=== PATIENT | female | born 1955 | race Caucasian/White ===

== ENCOUNTER → 2019-04-18 | Outpatient (CLI) | payer BC ==
[~2019-04-18] MED LIST: ASPI325; ASPI81EC PO; ATOR10 PO; CELE200 PO; CHOL10002; CLOP75 PO; FISH1000 PO; HYDACE10B PO; META800 PO; Multiple Vitam1 EAC1 PO; NAPR220 PO; OCUVITE EYE +1 EACH PO; VITAMINS
[2019-04-20 15:07] LABS: HPV 16 Negative (Negative); HPV 18 Negative (Negative); HPV OTHER HR TYPES Negative (Negative)
== END | disposition home or self-care (01) ==
LOC: LAB SHORT 09:00 → LAB 09:00
PROVIDERS: Family Medicine
DX: Z12.4 Encounter for screening for malignant neoplasm of cervix (principal)
CPT/HCPCS: 87624; G0145

== ENCOUNTER 2021-06-11 08:55 | Day surgery (SDC) | payer BC ==
[~2021-06-11] VITALS: Ht 167.6 cm; Wt 88.0 kg
[~2021-06-11 08:55] MED LIST changes: +AMLOATOR PO; +AMLODIPINE-OLM1 EAC2 PO; +ASPI81CH; +OMEP20ER PO
--- NOTE | 2021-06-11 09:22 | NUR ---
Ambulatory in Day Surgery. History, Chart, Medications and Allergies reviewed before start of procedure. Patient confirms NPO status and agrees with scheduled surgery.
--- NOTE | 2021-06-11 19:05 | NUR ---
SHIFT SUMMARY PT ARRIVED TO UNIT ABOUT 1600. A&O X4, VSS ON RA. S/P R TKA, GAUZE & RAQUEL WRAP IN PLACE, C/D/I. PT ABLE TO WIGGLE TOES AND HAS ALL SENSATION TO R FOOT. DENIES N&T, REPORTS PAIN TO BE TOLERABLE, MEDICATED X1 W/ OXYCODONE PER EMAR. TOLERATING PO WELL, DENIES N&V. AMBULATING WELL W/ 1 PERSON W/ FWW&GB, TO BR X2 & TO CHAIR. BOTH LEGS ELEVATED & POLAR PACK IN PLACE. WILL REPORT TO ONCOMING RN.
[2021-06-12 04:44] LABS: BASOPHILS ABSOLUTE AUTO 0.01 K/mm3 (0.00-0.23); BASOPHILS PERCENT AUTO 0 % (0-2); EOSINOPHILS PERCENT AUTO 0 % (0-6); Hematocrit 35.1 % (33.0-51.0); IMMATURE GRAN ABSOLUTE AUTO 0.03 K/mm3 (0.00-0.10); IMMATURE GRAN PERCENT AUTO 0 % (0-1); LYMPHOCYTES ABSOLUTE AUTO 0.47 K/mm3 (0.84-5.20); LYMPHOCYTES PERCENT AUTO 6 % (21-46); MONOCYTES ABSOLUTE AUTO 0.34 K/mm3 (0.16-1.47); MONOCYTES PERCENT AUTO 4 % (4-13); Mean Corpuscular HGB 27.9 pg (26.0-34.0); Mean Corpuscular HGB Conc 31.3 g/dL (31.5-36.5); Mean Corpuscular Volume 89 fL (80-100); Mean Platelet Volume 10.3 fL (9.1-12.4); NEUTROPHILS ABSOLUTE AUTO 7.33 K/mm3 (1.96-9.15); NEUTROPHILS PERCENT AUTO 90 % (41-73); Platelet Count 174 K/mm3 (150-400); RDW Standard Deviation 45.8 fL (35.1-46.3); Red Blood Cell Count 3.94 M/mm3 (3.80-5.20); White Blood Cell Count 8.18 K/mm3 (4.00-11.30)
[2021-06-12 05:07] LABS: Anion Gap 6 mmol/L (6-16); Blood Urea Nitrogen 13 mg/dL (8-24); Bun/Creatinine Ratio 19.4 (12.0-20.0); CO2, Blood 29 mmol/L (21-32); Calcium, Blood 8.6 mg/dL (8.5-10.1); Chloride, Blood 104 mmol/L (98-108); Creatinine, Blood 0.67 mg/dL (0.40-1.00); Glomerular Filtration Rate >60 (60-); Glucose, Blood 144 mg/dL (70-99); Magnesium, Blood 2.2 mg/dL (1.6-2.4); Sodium, Blood 139 mmol/L (136-145)
--- NOTE | 2021-06-12 06:29 | NUR ---
POD 1 S/P RIGHT TKA. PT VSS T/O NIGHT. DRESSING CDI. PULSES AND CAP REFILL WNL, PT DENIED N/T. PAIN MGD W/SCHEDULED TYLENOL/TORADOL AND 10MG OXYCODONE W/REP RELIEF. PT KIMBERLY REG PO, NO C/O N/V, IS VOIDING URINE W/O DIFFICULTY. PT AMB IN HALLS X2, KMIBERLY WELL. PT DRESSED IN OWN CLOTHES, AWAITING PT THIS AM.
[2021-06-12] MEDS ORDERED: AMLO5 PO (08:03)
[2021-06-12] MEDS ORDERED: OXYC5 PO (10:08)
[2021-06-12] MEDS ORDERED: SULTRIDS PO (10:09)
[2021-06-12] MEDS ORDERED: PROM25 PO (10:09)
--- NOTE | 2021-06-12 11:32 | NUR ---
DISCHARGE POD 1 RTKA PT [id number], AMBULATED WELL, CLEARED THERAPY THIS AM. PAIN WELL CONTROLLED PER EMAR. PT HAD ALL BELONGINGS SENT WITH DAUGHTER. POLAR SAL SENT WITH PATIENT. SCRIPTS PICKED UP PRIOR TO DISCHARGE. DRESSING CDI, NEW AQUACEL SENT WITH PATIENT. TOLERATING PO WELL. IV REMOVED PRIOR TO DISCHARGE, ALL INSTRUCTIONS GONE OVER WITH PATIENT, DECLINED FURTHER QUESTIONS.
--- NOTE | 2021-06-12 11:39 | NUR ---
PLACED CALL TO [facility] PER PT REQUEST.
== END 2021-06-12 11:16 | disposition home or self-care (01) ==
LOC: SURS 08:55 → ORSCMMR 08:55 → ORD 10:15 → ORSCMMR 10:15 → SURS 15:23 → ORSCMMR 06-12 11:16
PROVIDERS: Orthopaedic Surgery
PROC: 0SRC0J9 Replacement of Right Knee Joint with Synthetic Substitute, Cemented, Open Approach (ICD-10-PCS; principal; 2021-06-11 10:15)
PROC: 8E0YXBZ Computer Assisted Procedure of Lower Extremity (ICD-10-PCS; principal; 2021-06-11 10:15)
DX: M17.11 Unilateral primary osteoarthritis, right knee (principal); I10 Essential (primary) hypertension; E78.00 Pure hypercholesterolemia, unspecified; Z86.73 Personal history of transient ischemic attack (TIA), and cerebral infarction without residual deficits; Z79.02 Long term (current) use of antithrombotics/antiplatelets; Z79.899 Other long term (current) drug therapy; E66.9 Obesity, unspecified; Z68.32 Body mass index [BMI] 32.0-32.9, adult
CPT/HCPCS: 36415; 73560-RT; 80048; 83735; 85025; 97110; 97116; 97162; A9270; C1713; C1776; J0171; J0690; J0735; J1100; J1885; J2250; J2370; J2405; J2704; J2795; J3010; J3370; J7050; J7120